=== PATIENT | female | born 1975 | race Caucasian/White ===

== ENCOUNTER 2016-12-07 05:56 | Day surgery (SDC) | payer OTHER ==
--- NOTE | 2016-11-25 17:13 | GHP ---
[f rep st] PREOP HISTORY AND PHYSICAL DATE OF ADMISSION: 12/07/2016 PLANNED PROCEDURES: Hysteroscopy with morcellation of endometrial tissue and endometrial ablation. Diagnosis is menorrhagia. HISTORY OF PRESENT ILLNESS: The patient is a 41-year-old, 3, para 3-0-0-3, who has periods t hat have been getting progressively closer together and alternate between light and heavy. Her perio ds are every 3 weeks. 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 She had a pelvic ultrasound, which showed a uterus measuring 9 x 5.6 x 4.1 cm with an endometrium of 0.67 cm and normal ovaries. No obvious cause of the menorrhagia was discovered. We had a long discussion about management options including control pills, Mirena IUD, acupunct ure, German herbs, and endometrial ablation. The patient is electing to proceed with a hysteroscopy with morcellation of endometrial tissue and endometrial ablation. We discussed the recommended prot ocol proceeding with a preoperative endometrial biopsy. 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 Risks and benefits of the procedure were reviewed extensively with the patient. The patient has been properly consented. MEDICAL HISTORY: Unremarkable. MEDICATIONS: None. PAST SURGICAL HISTORY: [place] tooth extraction. ALLERGIES: No known drug allergies. SOCIAL HISTORY: Patient is . 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 She denies tobacco or drug use. Cesar newman does have 4 alcoholic beverages a week. FAMILY MEDICAL HISTORY: Noncontributory. SCHOOL PATROL HISTORY: Menarche age 10. Periods have been every 25 days, lasting 5-7 days. She is a gravi da 3, para 3-0-0-3. She has had 3 spontaneous vaginal deliveries, and uncomplicated pregnancies. Cesar newman denies any history of any abnormal Pap smears or sexually transmitted diseases. Her most recent Pa p smear was 09/03/2016. PHYSICAL EXAM: VITAL SIGNS: Stable. GENERAL APPEARANCE: Alert and oriented x3. VITAL SIGNS: Her heart rate is regularly irregular. LUNGS: Clear to auscultation bilaterally. ABDOMEN: Soft, nond istended, nontender. EXTREMITIES: Reveal no calf tenderness or edema. PELVIC: Reveals a mobile mi d position uterus with no adnexal masses. A pelvic ultrasound was described above. ASSESSMENT/PLAN: A 41-year-old 3, para 3-0-0-3, with menorrhagia. She is electing to procee d with a hysteroscopy with morcellation of endometrial tissue and endometrial ablation. Risks and be nefits of the procedure were reviewed extensively with the patient. A 70% amenorrhea rate was discus sed with the patient. The possibility of not being able to complete the procedure was also discussed . /[id number]/MODL
[2016-12-07] MEDS ORDERED: LIDOCAINE 1% 5 ML SDV ONE (06:21)
[2016-12-07] MEDS ORDERED: MIDAZOLAM 2 MG/2 ML VIAL ONE (07:15)
[2016-12-07] MEDS ORDERED: fentaNYL 100 MCG/2 ML INJ ONE (07:16)
[2016-12-07] MEDS ORDERED: PROPOFOL/EMULSION 500 MG/50 ML BOTTLE IV ONE (07:17)
[2016-12-07] MEDS ORDERED: DOXYCYCLINE INJ 100 MG in D5W 250 ML IV ONE (07:30)
[2016-12-07] MEDS ORDERED: PROPOFOL 200 MG/20 ML VIAL ONE ×2 (07:58→08:05)
[2016-12-07] MEDS ORDERED: KETOROLAC 30 MG/1 ML SDV ONE (08:07)
--- NOTE | 2016-12-07 09:28 | GOP ---
[f rep st] OPERATIVE REPORT DATE OF OPERATION: 12/07/2016 SURGEON: Janet Abreu DO ANESTHESIA: Sedation. ANESTHESIOLOGIST: Arnold Shearer. PREOPERATIVE DIAGNOSIS: Menorrhagia. POSTOPERATIVE DIAGNOSIS: Menorrhagia. PROCEDURE PERFORMED: Hysteroscopy with morcellation of endometrial tissue and endometrial ablation. FINDINGS: 1. Mobile mid position uterus with no adnexal masses. 2. Hysteroscopic findings: Slightly thickened endometrium, bilateral tubal ostia visualized. SPECIMENS: Endometrial curettings. INDICATIONS: Patient is a 41-year-old 3, para 3-0-0-3, who is complaining of progressively heavier periods. We have had long discussion about management options, and [facility] hysteroscopy with morcellation of endometrial tissue and endometrial ablation. Risks and benefits of the procedure were reviewed extensively with the patient. A 70% amenorrhea rate was discussed, and the patient was properly consented. DESCRIPTION OF PROCEDURE: Patient was taken into the operating room with intravenous fluids and pat ient was given doxycycline and placed on the operating room table in the dorsal supine position wher e general anesthesia was obtained. She was then repositioned into the dorsal lithotomy position wit h the [facility] stirrups, and prepped and draped in the normal sterile fashion. Exam under anesthesi a revealed a mobile mid position uterus with no adnexal masses. A speculum was then placed in the p atient's vagina. An Allis clamp was used to grasp the anterior lip of the cervix and the cervix was then carefully dilated to allow for the introduction of an operative hysteroscope. When I got towa rd the 9-2 dilators, the Allis clamp would not stay on the cervix, so a single-tooth tenaculum was used. The operative hysteroscope was then introduced with fluid medium running. Bilateral tubal o stia were visualized. The endometrial tissue was noted to be slightly thickened posteriorly, but ot herwise overall thin. The morcellator was then introduced, and a circumferential morcellation and c urettage of the endometrial tissue was performed. Specimens were collected and sent to pathology. The cavity length sounded to 8.5 cm. Cervical length was 3.5 cm. The Melina endometrial ablation apparatus was then inserted. A cavity assessment was performed and an endometrial ablation was perf ormed. Following completion of the procedure, the hysteroscope was then reinserted, and diffusely a blated endometrial cavity was noted. The hysteroscope was then withdrawn. A cervical laceration fr om the single-tooth tenaculum was noted, and it was repaired with 0 Vicryl in a running, locked [facility] ion. The instruments were then removed from the patient's vagina. The patient was returned to the dorsal supine position where she was easily awoken from anesthesia. Sponge, lap and needle counts w ere correct x2. The patient was transported to recovery room in stable condition. /[id number]/MODL
== END 2016-12-07 09:55 | disposition home or self-care (01) ==
LOC: FSGY 05:56
PROVIDERS: ATTEND Obstetrics & Gynecology
PROC: 0UDB8ZX Extraction of Endometrium, Via Natural or Artificial Opening Endoscopic, Diagnostic (ICD-10-PCS; principal; 2016-12-07 07:15)
PROC: 0U5B8ZZ Destruction of Endometrium, Via Natural or Artificial Opening Endoscopic (ICD-10-PCS; principal; 2016-12-07 07:15)
DX: N92.0 Excessive and frequent menstruation with regular cycle (principal)
CPT/HCPCS: 58563; C1782; J1885; J2250; J2704; J3010

== ENCOUNTER → 2017-09-01 | Outpatient (CLI) | payer OTHER | LOC: BMCIMAGING 12:53 | PROVIDERS: ATTEND Obstetrics & Gynecology | DX: Z12.31 Encounter for screening mammogram for malignant neoplasm of breast (principal); Z80.3 Family history of malignant neoplasm of breast | CPT/HCPCS: G0202 ==

== ENCOUNTER → 2018-09-04 | Outpatient (CLI) | payer OTHER | LOC: FIMAGING 08:38 | PROVIDERS: ATTEND Obstetrics & Gynecology | DX: Z12.31 Encounter for screening mammogram for malignant neoplasm of breast (principal); Z80.3 Family history of malignant neoplasm of breast; R92.8 Other abnormal and inconclusive findings on diagnostic imaging of breast ==

== ENCOUNTER → 2018-09-19 | Outpatient (CLI) | payer OTHER | LOC: FIMAGING 14:50 | PROVIDERS: ATTEND Obstetrics & Gynecology | DX: R92.8 Other abnormal and inconclusive findings on diagnostic imaging of breast (principal) ==